=== PATIENT | female | born 1980 | race Caucasian/White ===

== ENCOUNTER 2019-03-20 17:49 | Emergency (ER) | payer BC, SELFPAY ==
[2019-03-20 17:51] VITALS: BP 141/87; PULSE 62; RESP 16; TEMP 37.1; O2SAT 99; BMI 25.9
--- NOTE | 2019-03-20 18:00 | RAD_ITS ---
STUDY: X-RAY - BILATERAL KNEES REASON FOR EXAM: Female, 38 years old. Pain. Lacerations from a fall not too long ago. Difficulty bearing weight. TECHNIQUE: 1 view(s) of the right knee were obtained. 1 view(s) of the left knee were obtained. 3 view(s) of the bilateral knees were obtained including AP standing weight-bearing views. COMPARISON: None. FINDINGS - RIGHT KNEE: Normal visualized right distal femur. Normal visualized proximal right tibia and fibula. Normal right proximal tibiofibular articulation. There is no acute fracture, dislocation or destructive osseous pathology. Normal medial femorotibial compartment of the right knee. Normal lateral femorotibial compartment of the right knee. Normal patellofemoral articulation of the right knee. There is no demonstrated joint effusion of the right knee. The soft tissue structures are unremarkable. FINDING - LEFT KNEE: Normal visualized left distal femur. Normal visualized proximal left tibia and fibula. Normal left proximal tibiofibular articulation. No acute fracture, dislocation or destructive osseous pathology. Normal medial femorotibial compartment of the left knee. Normal lateral femorotibial compartment of the left knee. Normal patellofemoral articulation of the left knee. There is no demonstrated joint effusion of the left knee. The soft tissue structures are unremarkable. RAD/Knee 4 or More Views IMPRESSION: Normal x-ray examination of the bilateral knees. Electronically Signed: Dav Johnson DO at 18:25 EDT Tel [phone], Service support ,
[2019-03-20] MEDS: Diphth,Pertuss(Acell),Tet Vac 0.5 ML Vial IM (18:23)
--- NOTE | 2019-03-20 18:54 | ED.DCSUM_ITS ---
- ER Visit Summary Date of Service: 03/20/19 Chief Complaint: [Fall with lacerations to bilateral knees] History of Present Illness: The patient is a 38 F [presents to the emergency department after falling this morning while in a restoration parking lot around 9:30 AM. Patient states that she had pants on but sustained some small lacerations to her knees. Patient complains of pain with walking. She is unsure of her last tetanus. She denies any other injuries.] Physical Examination: [HEENT-PERRLA, EOMI. Cranial nerves II through XII grossly intact. TMs clear. Mucous membranes moist. No adenopathy. Cardiovascular-regular rate and rhythm without murmur or ectopy Lungs-clear to auscultation, chest wall stable without crepitus or subcu emphysema Abdomen-normoactive bowel sounds, soft, nontender, no rebound or rigidity, no peritoneal signs. Extremities-intact ?4, normal range of motion, normal pulses. Right knee- patient has a 1 cm laceration and superficial abrasions over the area of the patella. She is neurovascular intact distally. Patient has some diffuse tender ness about the knee. Left knee-patient has a 2 cm laceration over the area of the patella with superficial abrasions. Patient has tenderness over the patella and the knee joint. She has good range of motion flexion extension. She is neurovascular intact distally. Test Results: [Bilateral knee x-rays obtained were negative for fracture.] Emergency Department Course and Treatment: [Laceration repair-wounds sterilely draped and prepped. Wound anesthetized locally with 1% lidocaine total of 6 cc used combined for the 2 lacerations. Wounds irrigated with saline. No foreign bodies noted within the wound. Using 4-0 nylon a total of 5 single interrupted sutures were placed with 2 in the right knee and 3 in the left knee. Patient tired procedure well.] Treatment Plan: [Follow-up with primary care physician in 10 days for suture removal.] Disposition: [Discharged to home in stable condition.] Impression: [Mechanical fall Bilateral knee lacerations total of 3 cm in length with simple repair Bilateral knee contusions] This note was generated with [employer] dictation software. It may contain incorrect words, spelling, and punctuation that were not noted in review of the chart prior to signing ED Disposition - Plan for ED Patient: Referrals: JACQUES,MAGO [Other]
--- NOTE | 2019-03-20 18:56 | ED.DEP ---
ED Disposition - Plan for ED Patient: Instructions: FALL, Mechanical, LACERATION, All Referrals: JACQUES,MAGO [Other] - 10 Day for suture removal
== END 2019-03-20 19:06 | disposition home or self-care (01) ==
PROVIDERS: Emergency Provider Emergency Medicine
DX: S81.011A Laceration without foreign body, right knee, initial encounter (principal); S81.012A Laceration without foreign body, left knee, initial encounter; S80.02XA Contusion of left knee, initial encounter; S80.01XA Contusion of right knee, initial encounter; W01.0XXA Fall on same level from slipping, tripping and stumbling without subsequent striking against object, initial encounter; Y93.9 Activity, unspecified; Y92.481 Parking lot as the place of occurrence of the external cause
CPT/HCPCS: 12002; 73564; 90471; 90715; 99282